=== PATIENT | male | born 1960 | race Caucasian/White ===

== ENCOUNTER 2016-03-31 15:02 | Inpatient (IN) | payer MEDICARE, OTHER ==
[~2016-03-31] VITALS: Ht 167.6 cm; Wt 68.5 kg
[2016-03-31 15:50] LABS: HEMOGLOBIN 10.4 gm/dl (14.0-17.5); RED BLOOD COUNT 3.23 M/UL (4.20-5.50); WHITE BLOOD COUNT 2.5 K/UL (4.5-11.0)
[2016-03-31 16:11] LABS: BUN/CREATININE RATIO 20 (0-10)
[2016-03-31] MEDS ORDERED: ANORO ELLIPTA1 EACH INH (23:10)
[2016-03-31] MEDS ORDERED: WELLBUTRIN 75 M75 MG PO (23:10)
[2016-03-31] MEDS ORDERED: SYNTHROID25 MCG PO (23:11)
[2016-03-31] MEDS ORDERED: LORTAB 5-325 M1 EACH PO (23:13)
[2016-03-31] MEDS ORDERED: ALPRAZOLAM0.5 MG PO (23:14)
[2016-03-31] MEDS ORDERED: CLARITIN10 M2 PO (23:14)
[2016-03-31] MEDS ORDERED: GEODON60 MG PO (23:15)
[2016-03-31] MEDS ORDERED: REMERON 15 MG T15 MG PO (23:16)
[2016-03-31] MEDS ORDERED: CRESTOR5 MG PO (23:16)
[2016-03-31] MEDS ORDERED: NEXIUM40 MG PO (23:17)
[2016-03-31] MEDS ORDERED: SINGULAIR10 MG PO (23:18)
[2016-03-31] MEDS ORDERED: PREDNISONE10 MG PO (23:18)
[2016-04-01 04:08] LABS: BUN/CREATININE RATIO 16 (0-10)
[2016-04-01 04:15] LABS: HEMOGLOBIN 8.8 gm/dl (14.0-17.5)
[2016-04-01 04:55] LABS: WHITE BLOOD COUNT 1.1 K/UL (4.5-11.0)
[2016-04-01 04:56] LABS: RED BLOOD COUNT 2.7 M/UL (4.20-5.50)
[2016-04-02 04:28] LABS: HEMOGLOBIN 9.2 gm/dl (14.0-17.5); RED BLOOD COUNT 2.89 M/UL (4.20-5.50)
[2016-04-02 04:32] LABS: WHITE BLOOD COUNT 2.6 K/UL (4.5-11.0)
[2016-04-02 04:37] LABS: BUN/CREATININE RATIO 14 (0-10)
[2016-04-03 05:29] LABS: HEMOGLOBIN 10.2 gm/dl (14.0-17.5)
[2016-04-03 05:33] LABS: RED BLOOD COUNT 3.22 M/UL (4.20-5.50); WHITE BLOOD COUNT 3.7 K/UL (4.5-11.0)
[2016-04-03 05:51] LABS: BUN/CREATININE RATIO 18 (0-10)
[2016-04-04 04:40] LABS: HEMOGLOBIN 10.6 gm/dl (14.0-17.5); RED BLOOD COUNT 3.38 M/UL (4.20-5.50)
[2016-04-04 04:54] LABS: BUN/CREATININE RATIO 20 (0-10)
[2016-04-04 05:48] LABS: WHITE BLOOD COUNT 6.4 K/UL (4.5-11.0)
[2016-04-05 04:52] LABS: HEMOGLOBIN 10.9 gm/dl (14.0-17.5); RED BLOOD COUNT 3.39 M/UL (4.20-5.50)
[2016-04-05 04:56] LABS: WHITE BLOOD COUNT 12.1 K/UL (4.5-11.0)
[2016-04-05 05:10] LABS: BUN/CREATININE RATIO 24 (0-10)
[2016-04-06 04:20] LABS: HEMOGLOBIN 10.9 gm/dl (14.0-17.5); RED BLOOD COUNT 3.43 M/UL (4.20-5.50); WHITE BLOOD COUNT 14.7 K/UL (4.5-11.0)
[2016-04-06 04:47] LABS: BUN/CREATININE RATIO 27 (0-10)
[2016-04-07 05:35] LABS: HEMOGLOBIN 10.8 gm/dl (14.0-17.5); RED BLOOD COUNT 3.39 M/UL (4.20-5.50)
[2016-04-07 05:51] LABS: BUN/CREATININE RATIO 30 (0-10)
[2016-04-08 05:49] LABS: HEMOGLOBIN 11.6 gm/dl (14.0-17.5); RED BLOOD COUNT 3.67 M/UL (4.20-5.50)
[2016-04-08 06:07] LABS: BUN/CREATININE RATIO 38 (0-10)
[2016-04-08 11:31] LABS: WHITE BLOOD COUNT 20.4 K/UL (4.5-11.0)
[2016-04-11 10:43] LABS: RED BLOOD COUNT 4.38 M/UL (4.20-5.50)
[2016-04-11 10:48] LABS: HEMOGLOBIN 14.2 gm/dl (14.0-17.5); WHITE BLOOD COUNT 34.7 K/UL (4.5-11.0)
[2016-04-12 16:01] LABS: HEMOGLOBIN 10.9 gm/dl (14.0-17.5); RED BLOOD COUNT 3.43 M/UL (4.20-5.50); WHITE BLOOD COUNT 18.9 K/UL (4.5-11.0)
[2016-04-12 16:45] LABS: BUN/CREATININE RATIO 39 (0-10)
[2016-04-14 04:29] LABS: HEMOGLOBIN 10.7 gm/dl (14.0-17.5); RED BLOOD COUNT 3.3 M/UL (4.20-5.50)
[2016-04-14 04:50] LABS: BUN/CREATININE RATIO 43 (0-10)
[2016-04-14 05:07] LABS: WHITE BLOOD COUNT 24.6 K/UL (4.5-11.0)
[2016-04-14 18:29] LABS: BUN/CREATININE RATIO 37 (0-10)
== END 2016-04-20 16:05 | disposition expired | DRG 808 ==
LOC: ER1 15:02 → ZEROF 19:37 → MED SURG 4 19:37 → PROG CARE 19:37 → MED SURG 4 04-07
PROVIDERS: Family Medicine; Hospitalist; Internal Medicine; Internal Medicine Hematology & Oncology; ADMIT Emergency Medicine
PROC: 0DJ08ZZ Inspection of Upper Intestinal Tract, Via Natural or Artificial Opening Endoscopic (ICD-10-PCS; principal; 2016-03-31)
PROC: 0DJ08ZZ Inspection of Upper Intestinal Tract, Via Natural or Artificial Opening Endoscopic (ICD-10-PCS; 2016-04-02)
PROC: 5A09457 Assistance with Respiratory Ventilation, 24-96 Consecutive Hours, Continuous Positive Airway Pressure (ICD-10-PCS; 2016-04-15)
DX: D70.1 Agranulocytosis secondary to cancer chemotherapy (principal); G93.6 Cerebral edema; G92 Toxic encephalopathy; J69.0 Pneumonitis due to inhalation of food and vomit; C79.31 Secondary malignant neoplasm of brain; N17.9 Acute kidney failure, unspecified; E87.1 Hypo-osmolality and hyponatremia; J70.0 Acute pulmonary manifestations due to radiation; C82.90 Follicular lymphoma, unspecified, unspecified site; C34.91 Malignant neoplasm of unspecified part of right bronchus or lung; J90 Pleural effusion, not elsewhere classified; I31.3 Pericardial effusion (noninflammatory); G81.91 Hemiplegia, unspecified affecting right dominant side; R50.81 Fever presenting with conditions classified elsewhere; T43.595A Adverse effect of other antipsychotics and neuroleptics, initial encounter; T42.4X5A Adverse effect of benzodiazepines, initial encounter; J44.9 Chronic obstructive pulmonary disease, unspecified; T45.1X5A Adverse effect of antineoplastic and immunosuppressive drugs, initial encounter; G40.909 Epilepsy, unspecified, not intractable, without status epilepticus; K74.60 Unspecified cirrhosis of liver; K22.2 Esophageal obstruction; Y84.2 Radiological procedure and radiotherapy as the cause of abnormal reaction of the patient, or of later complication, without mention of misadventure at the time of the procedure; E03.9 Hypothyroidism, unspecified; E78.5 Hyperlipidemia, unspecified; E83.42 Hypomagnesemia; D72.829 Elevated white blood cell count, unspecified; T45.8X5A Adverse effect of other primarily systemic and hematological agents, initial encounter; R26.81 Unsteadiness on feet; K59.09 Other constipation; K44.9 Diaphragmatic hernia without obstruction or gangrene; M19.90 Unspecified osteoarthritis, unspecified site; G89.29 Other chronic pain; R13.10 Dysphagia, unspecified; F32.9 Major depressive disorder, single episode, unspecified; F41.9 Anxiety disorder, unspecified; Z66 Do not resuscitate; Z87.891 Personal history of nicotine dependence; Z91.81 History of falling; Z79.891 Long term (current) use of opiate analgesic; Z79.52 Long term (current) use of systemic steroids; Z79.899 Other long term (current) drug therapy; Z88.0 Allergy status to penicillin; Z98.890 Other specified postprocedural states; Z82.49 Family history of ischemic heart disease and other diseases of the circulatory system
CPT/HCPCS: 36415; 36600; 70450; 70553; 71010; 71250; 71260; 74230; 80048; 80053; 80202; 81001; 82140; 82550; 82553; 82803; 82962; 83605; 83735; 83874; 84484; 85025; 85027; 85610; 87040; 87077; 87086; 87186; 92526; 92610; 92611-GN; 93005; 93308; 94640; 94660; 94664; 95816; 96361; 96365; 96367; 97110; 97530; 99285; A9577; J1100; J1642; J1650; J1953; J1956; J2185; J2250; J2930; J3010; J3370; J7030; J7040; J7050; J7070; Q9962